=== PATIENT | female | born 1965 | race Caucasian/White ===

== ENCOUNTER 2019-01-08 13:09 | Outpatient (CLI) | payer OTHER | END 2019-01-08 23:59 | disposition home or self-care (01) | LOC: CFH 13:09 | PROVIDERS: ATTEND Nurse Practitioner | DX: Z12.31 Encounter for screening mammogram for malignant neoplasm of breast (principal); Z13.820 Encounter for screening for osteoporosis; M81.0 Age-related osteoporosis without current pathological fracture; N60.19 Diffuse cystic mastopathy of unspecified breast; Z78.0 Asymptomatic menopausal state | CPT/HCPCS: 76377; 76642; 77063; 77080; 77067 ==